=== PATIENT | female | born 1960 | race African-American/Black ===

== ENCOUNTER 2016-09-10 13:27 | Inpatient (IN) | payer OTHER ==
[~2016-09-10] VITALS: Ht 162.6 cm; Wt 99.3 kg
[~2016-09-10 13:27] MED LIST: GLIP10 PO; HCTZ; INSLAN SQ; LISI-622 PO; METF850T2 PO; OMEP20 PO; SIMV20TA6 PO
[2016-09-10] MEDS ORDERED: SITA25 PO (13:44)
[2016-09-10] MEDS ORDERED: GLIM2TAB PO (13:44)
[2016-09-10] MEDS ORDERED: INSLAN SQ (13:45)
[2016-09-10 13:46] LABS: GLUCOSE,POINT OF CARE > 600 MG/DL (70-110)
[2016-09-10] MEDS ORDERED: INSU100C6 SQ (13:46)
[2016-09-10] MEDS ORDERED: SODIUM CHLORIDE 0.9% 1,000 ML IV ONE ×3 (14:15→20:00)
[2016-09-10] MEDS ORDERED: INSULIN REGULAR, HUMAN 100 UNITS/ML IVP ONE ×2 (14:15→16:15)
[2016-09-10 15:16] LABS: BASOPHILS % (AUTO) 0.7 % (0.0-2.0); HEMATOCRIT 42.2 % (36-46); LYMPHOCYTES # (AUTO) 2.1 K/uL (1.0-4.8); MEAN CORPUSCULAR HEMOGLOBIN 29.7 pg (26.0-34.0); MEAN CORPUSCULAR HGB CONC 33.2 G/dL (31.0-37.0); MEAN CORPUSCULAR VOLUME 90 fL (80-100); MONOCYTES # (AUTO) 0.2 K/uL (0.1-1.0); MONOCYTES % (AUTO) 2.7 % (2.0-9.0); NEUTROPHILS % (AUTO) 70.6 % (40.0-70.0); PLATELET COUNT (AUTO) 255 K/uL (150-450); RED BLOOD CELL COUNT(AUTO) 4.72 MIL/uL (4.00-5.20); RED CELL DISTRIBUTION WIDTH 13.8 % (11.5-14.5); WHITE BLOOD COUNT (AUTO) 8.5 K/uL (4.5-11.0)
[2016-09-10 15:39] LABS: APPEARANCE,URINE CLEAR (CLEAR); GLUCOSE, URINE (UA) >=1000 mg/dL (NEGATIVE); KETONES,URINE NEGATIVE (NEGATIVE); LEUKOCYTE ESTERASE ,URINE NEGATIVE (NEGATIVE); OCCULT BLOOD,URINE NEGATIVE (NEGATIVE); PH,URINE 5.5 (5.0-8.0); PROTEIN,URINE NEGATIVE (NEGATIVE)
[2016-09-10 15:41] LABS: RBC,URINE 0-2 /HPF (0-2); SQUAMOUS EPITHELIAL CELL,UR Few /LPF (None Seen); WBC,URINE 0-2 /HPF (0-5)
[2016-09-10 15:47] LABS: ALBUMIN 3.5 g/dL (3.4-5.0); BILIRUBIN,TOTAL 0.3 mg/dL (0.1-1.0); CALCIUM, TOTAL 9.4 mg/dL (8.8-10.5); CREATININE 1.29 mg/dL (0.60-1.30); POTASSIUM 4.2 mmol/L (3.5-5.1)
[2016-09-10 16:06] LABS: GLUCOSE COMMENT 1 Doctor Notified; GLUCOSE,POINT OF CARE 600 MG/DL (70-110)
[2016-09-10 16:56] LABS: GLUCOSE,POINT OF CARE 483 MG/DL (70-110)
[2016-09-10] MEDS ORDERED: ACETAMINOPHEN 325 MG TABLET PO PRN ×2 (17:15→19:45)
[2016-09-10] MEDS ORDERED: ONDANSETRON HCL 4 MG/2 ML VIAL IVP PRN (17:15)
[2016-09-10] MEDS ORDERED: DEXTROSE 50%-WATER 25 GM/50 ML SYRINGE IVP PRN ×2 (17:15→20:00)
[2016-09-10] MEDS ORDERED: INSULIN REGULAR, HUMAN 100 UNITS/ML SQ PRN (17:15)
[2016-09-10 18:07] VITALS: BP 122/78
[2016-09-10 18:30] LABS: GLUCOSE COMMENT 1 Received Meds; GLUCOSE,POINT OF CARE 421 MG/DL (70-110)
[2016-09-10] MEDS ORDERED: PNEUMOCOCCAL VACCINE POLYVALENT 0.5 ML VIAL [PPSV23] IM ONE (19:00)
[2016-09-10] MEDS ORDERED: INSULIN REGULAR, HUMAN 100 UNITS/ML SQ ONE (19:00)
[2016-09-10 19:14] VITALS: BP 124/74
[2016-09-10] MEDS ORDERED: OxyCODONE HCL/ACETAMINOPHEN 5-325 MG TABLET PO PRN (19:45)
[2016-09-10] MEDS ORDERED: MAGNESIUM HYDROXIDE SUSPENSION 30 ML UDCUP PO PRN (19:45)
[2016-09-10] MEDS ORDERED: ALBUTEROL SULFATE 2.5 MG/0.5 ML NEB SOLUTION NEB PRN (19:45)
[2016-09-10] MEDS ORDERED: INSULIN DETEMIR 100 UNITS/ML SQ SCH (21:00)
[2016-09-10] MEDS: DOCUSATE SODIUM 100 MG CAPSULE PO SCH (21:12)
[2016-09-10 21:57] LABS: GLUCOSE COMMENT 1 Received Meds; GLUCOSE,POINT OF CARE 453 MG/DL (70-110)
[2016-09-10] MEDS: INSULIN ASPART 100 UNITS/ML SQ PRN (22:24)
[2016-09-10 23:37] VITALS: BP 101/63
[2016-09-11 04:29] VITALS: BP 110/68
[2016-09-11] MEDS: INSULIN ASPART 100 UNITS/ML SQ PRN ×2 (06:06→11:56)
[2016-09-11 06:17] LABS: GLUCOSE COMMENT 1 Received Meds; GLUCOSE,POINT OF CARE 233 MG/DL (70-110)
[2016-09-11 06:57] LABS: HEMOGLOBIN A1C 12.8 % (4.5-6.2)
[2016-09-11 07:02] LABS: ANION GAP 9 mmol/L (8-16); CALCIUM, TOTAL 8.2 mg/dL (8.8-10.5); CARBON DIOXIDE 27 mmol/L (22-29); CHLORIDE 99 mmol/L (98-107); CREATININE 0.74 mg/dL (0.60-1.30); GLOMERULAR FILTR. RATE CALC > 60 mL/min (>60); POTASSIUM 3.1 mmol/L (3.5-5.1); SODIUM SERUM 135 mmol/L (136-145); UREA NITROGEN, BLOOD 11 mg/dL (7-18)
[2016-09-11 07:20] VITALS: BP 110/63
[2016-09-11] MEDS: DOCUSATE SODIUM 100 MG CAPSULE PO SCH (08:46)
[2016-09-11] MEDS ORDERED: PANTOPRAZOLE SODIUM 40 MG DR TABLET PO SCH (09:00)
[2016-09-11 11:00] VITALS: BP 102/51
[2016-09-11 12:06] LABS: GLUCOSE,POINT OF CARE 372 MG/DL (70-110)
[2016-09-11 14:43] VITALS: BP 102/53
== END 2016-09-11 16:00 | disposition home or self-care (01) | DRG 420 ==
LOC: EMS 13:30 → 6N 17:29
PROVIDERS: ADMIT Internal Medicine; ATTEND Internal Medicine
DX: E11.65 Type 2 diabetes mellitus with hyperglycemia (principal); I10 Essential (primary) hypertension; E87.1 Hypo-osmolality and hyponatremia; E78.5 Hyperlipidemia, unspecified; K21.9 Gastro-esophageal reflux disease without esophagitis; F17.210 Nicotine dependence, cigarettes, uncomplicated; Z98.890 Other specified postprocedural states; Z91.14 Patient's other noncompliance with medication regimen; Z79.4 Long term (current) use of insulin; Z79.899 Other long term (current) drug therapy; Z90.710 Acquired absence of both cervix and uterus; Z71.6 Tobacco abuse counseling; Z91.19 Patient's noncompliance with other medical treatment and regimen; Z28.21 Immunization not carried out because of patient refusal
CPT/HCPCS: 82948; 82962; 83036; 96361; 96374; 96376; 99285; J1815; J7030

== ENCOUNTER → 2017-05-21 | Outpatient (CLI) | payer OTHER ==
[~2017-05-21] MED LIST changes: +GLIM2TAB PO; -GLIP10 PO; -HCTZ; +INSU100C6 SQ; -METF850T2 PO; -OMEP20 PO; +SITA25 PO
== END | disposition home or self-care (01) ==
LOC: RADPV 10:05
PROVIDERS: ATTEND Internal Medicine Nephrology
DX: K76.0 Fatty (change of) liver, not elsewhere classified (principal)
CPT/HCPCS: 76770